=== PATIENT | female | born 1965 | race Caucasian/White ===

== ENCOUNTER 2016-08-16 17:11 | Emergency (ER) | payer MEDICAID ==
[~2016-08-16] VITALS: Ht 167.6 cm; Wt 73.5 kg
[2016-08-16 17:20] VITALS: Ht 167.6 cm; Wt 73.5 kg
[2016-08-16] MEDS ORDERED: LIDOCAINE 2% (MDV) 20 ML INJ INJ ONE (18:00)
--- NOTE | 2016-08-16 19:29 | ERD ---
ER Documentation Chief Complaint Date/Time DATE: 08/16/16 TIME: 19:26 Chief Complaint Complains of pelvic/vaginal pain HPI This is a 51-year-old female presents to the ER stating that she feels as if something fell out of her vagina. Patient denies any vaginal discharge, or urinary frequency or dysuria. She does admit to some pelvic pain. Patient states that this happened to her at this morning. Patient denies any fevers or chills. Patient states that she was lifting something heavy at work when she felt that this happened. Patient denies any urinary or fecal incontinence. Patient denies any abdominal pain. Patient denies any nausea vomiting or diarrhea. ROS 12 point review of systems was done, all negative except per HPI. Medications Home Meds Active Scripts Ibuprofen* (Motrin*) 600 Mg Tab, 600 MG PO Q6, #30 TAB Prov:BUDDY MUSE 08/16/16 Allergies Allergies: Coded Allergies: No Known Allergy (Unverified , 08/16/16) PMhx/Soc Medical and Surgical Hx: pt denies Medical Hx, pt denies Surgical Hx Hx Alcohol Use: No Hx Substance Use: No Hx Tobacco Use: No Smoking Status: Never smoker Physical Exam Vitals Vital Signs Date Time Temp Pulse Resp B/P Pulse Ox O2 Delivery O2 Flow Rate FiO2 08/16/16 17:20 98.0 77 20 139/82 97 Physical Exam GENERAL: The patient is well developed and appropriate for usual state of health , in no apparent distress. HEENT: Atraumatic. CHEST: Clear to auscultation bilaterally. There are no rales, wheezes or rhonchi. HEART: Regular rate and rhythm. No murmurs, clicks, rubs or gallops. ABDOMEN: Soft, nontender and nondistended. Good bowel sounds. No rebound or guarding. No gross peritonitis. No gross organomegaly or masses. No Palmer sign or McBurney point tenderness. BACK: No midline or flank tenderness. No lumbar spine tenderness, no step-offs no crepitus. : no vaginal discharge, cervical motion tenderness, no evidence of bartholin cysts, cervix was visualized and there was no even of uterus prolapsing. there is however possible urinary bladder prolapse. SKIN: There is no apparent rash or petechia. The skin is warm and dry. Results 24 hrs Current Medications Medications (Trade) Dose Ordered Sig/Lori Route PRN Reason Start Time Stop Time Status Last Admin Dose Admin Lidocaine (Xylocaine 2% (Mdv) 20 ml) 20 ml ONCE ONCE INJ 08/16/16 18:00 08/16/16 18:53 DC Procedures/MDM This is a 51-year-old female presents to the ER with vaginal pain and pelvic pain. Patient may have slight bladder prolapse. There was no evidence of any discharge or cervical motion tenderness on pelvic examination. Suspicion for STD, bacterial vaginosis, STI, pelvic inflammatory disease is low. Pelvic ultrasound reveals some uterine fibroids which may be the cause of patient's pelvic pain. Suspicion for ovarian cyst or ovarian torsion is low. Suspicion for hernia is low as patient does not have any abdominal pain her physical examination was benign. Patient will be sent home with ibuprofen. She was told to urgently follow up with her [employer] the urologist. She should also go to her primary care doctor for a possible referral if she needs it. She is to return to ER sooner if symptoms worsen. Patient understands and agrees with plan. Departure Diagnosis: Primary Impression: Vaginal pain Additional Impression: Pelvic pain Condition: Stable BUDDY MUSE Aug 16, 2016 19:29
--- NOTE | 2016-08-16 19:35 | RADRPT ---
PROCEDURE: US Pelvis. CLINICAL INDICATION: pelvic pain TECHNIQUE: Multiple sonographic images of the pelvis were obtained utilizing a transabdominal and endovaginal technique. The images were reviewed on a PACS workstation. COMPARISON: None. FINDINGS: The uterus is visualized and measures 10.1 cm sagittal by 4.6 cm AP by 6.1 cm transverse. On endova ginal imaging a subserosal leiomyoma measuring 1.6 x 1.8 by 5 cm in size is identified. There is a p edunculated fibroid measuring 4 x 4 x 3.4 cm arising from the fundus of the uterus. The endometrial echo complex is normal and measures 6 mm. No intrauterine gestation is identified. . There is no evidence for free fluid. The right ovary has a normal echotexture and measures to by 2 .7 x 1.5 cm. There is a 1.3 cm benign right ovarian cyst . The left ovary has a normal echotexture and measures 2.3 by 2.6 x 1.2 cm. There is normal blood flow and Doppler imaging to both ovaries.. No adnexal masses are noted. IMPRESSION: 1. The uterus is heterogeneous and contains multiple fibroids the largest is pedunculated measuring 4 x 4 x 3.4 cm. 2. 1.3 cm simple right ovarian cyst. 3. Normal blood flow to both ovaries. RPTAT:AAJJ Physician Cyndi Date Time Electronically viewed and signed by Physician Cyndi on 08/16/2016 19:35 JUAN FRANCISCO/
[2016-08-16] MEDS ORDERED: IBUP-1542 PO (19:38)
[2016-08-16 20:09] VITALS: BP 158/98; PULSE 67; RESP 15; TEMP 98.2
== END 2016-08-16 20:11 | disposition home or self-care (01) ==
LOC: FTE 17:11
DX: R10.2 Pelvic and perineal pain (principal)
CPT/HCPCS: 76830; 76856; Z7610